=== PATIENT | female | born 1980 | race Asian ===

== ENCOUNTER 2016-07-30 18:35 | Emergency (ER) | payer SELFPAY ==
[~2016-07-30] VITALS: Ht 152.4 cm; Wt 65.0 kg
[2016-07-30] MEDS ORDERED: KETOROLAC TROMETHAMINE 60 MG/2 ML VIAL IM ONE (20:45)
[2016-07-30] MEDS ORDERED: ACETAMINOPHEN/CODEINE 300-30 MG TABLET PO ONE (20:45)
[2016-07-30 20:55] VITALS: BP 139/80
== END 2016-07-30 21:20 | disposition home or self-care (01) ==
LOC: EMS 18:38
DX: S93.401A Sprain of unspecified ligament of right ankle, initial encounter (principal); W01.0XXA Fall on same level from slipping, tripping and stumbling without subsequent striking against object, initial encounter; Y93.89 Activity, other specified; Y92.89 Other specified places as the place of occurrence of the external cause; Y99.8 Other external cause status
CPT/HCPCS: 29505; 73610; 81025; 96372; 99284; J1885